=== PATIENT | female | born 2000 | race Caucasian/White ===

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

== ENCOUNTER 2023-08-20 21:33 | Emergency (ER) | payer BC ==
[~2023-08-20] VITALS: Ht 162.6 cm; Wt 70.3 kg
[2023-08-20 21:52] VITALS: BP_SYST 128; PULSE 93; RESP 16; TEMP 98.4; O2SAT 100
[2023-08-20] MEDS: DIPHTH,PERTUSS(ACELL),TET VAC 0.5 ML VIAL (Tdap) I.M. ONE (22:05)
[2023-08-20] MEDS: cefTRIAXone 1 GM in LIDOCAINE 1%, 20 ML MDV 2.1 ML IM ONE (22:08)
[2023-08-20] MEDS: IBUPROFEN 600 MG TABLET PO ONE ×2 (22:38→22:54)
[2023-08-20] MEDS ORDERED: NAPR-1172 PO (22:41)
[2023-08-20] MEDS ORDERED: AUG875 PO (22:41)
[2023-08-20 22:47] VITALS: BP_SYST 128; PULSE 93; RESP 16; TEMP 98.4; O2SAT 100
== END 2023-08-20 22:47 | disposition home or self-care (01) ==
LOC: SED 21:33
DX: S61.452A Open bite of left hand, initial encounter (principal); S61.451A Open bite of right hand, initial encounter; Z23 Encounter for immunization; Z79.899 Other long term (current) drug therapy; Z79.2 Long term (current) use of antibiotics; W54.0XXA Bitten by dog, initial encounter; Y93.89 Activity, other specified; Y92.89 Other specified places as the place of occurrence of the external cause; Y99.8 Other external cause status
CPT/HCPCS: 99284; 90715; 96372; 90471; J0696; J2001